=== PATIENT | female | born 1985 | race Caucasian/White ===

== ENCOUNTER 2025-02-10 14:34 | Emergency (ER) | payer SELFPAY ==
--- NOTE | ~2025-02-10 | US_ITS ---
EXAMINATION: US OB <=14 wk fetus w TV, 02/10/2025 16:38 V [employer]T M[employer] ASSEMBLER AND CURER HISTORY: 6-7 weeks, bleeding Comparison: None Technique: Orozco-scale and color Doppler images were obtained. Findings: The uterus is anteverted measuring 8.9 x 6.1 x 5.5 cm. Endometrium is thickened demonstrating a heterogeneous appearance with some areas of increased flow, the endometrium maximally measures 3.1 cm. Retained products of conception are not excluded Within the uterine cervix there is a probable gestational sac identified with questionable pole and yolk sac, no cardiac motion identified although evaluation is limited. Right ovary 2.5 x 1.5 x 2.2 cm, no adnexal mass, normal flow. Left ovary 3.2 x 1.5 x 3.2 cm, no adnexal mass, normal flow. IMPRESSION: Abnormally thickened endometrium with abnormal flow, possible retained products of conception. There is a probable gestational sac located within the uterine cervix. Findings probably represent in progress.. Serial beta-hCG and follow-up is recommended. Reviewed, dictated and finalized at location P. V BELT MOLD ASSEMBLER AND CURER IMPRESSION: Abnormally thickened endometrium with abnormal flow, possible retai rikki products of conception. There is a probable gestational sac located within the uterine cervix. Findings probably represent in progress.. Serial b eta-hCG and follow-up is recommended.
[2025-02-10 14:39] VITALS: BP 130/77; PULSE 107; RESP 18; TEMP 36.8; O2SAT 100
[2025-02-10 14:53] VITALS: BP 138/58; PULSE 99; RESP 17; O2SAT 100
--- OUTSIDE RECORDS SUMMARY | 2025-02-10 15:44 | XMS_ITS | Clinical Summary ---
Author Organization [facility] Address [address] [place] [address] Care Team Providers Care Electrician Elevator Maintenance Name Role Phone Unavailable Primary Care Provider Unavailabl e Source Comments [facility],non-owned Affiliates and Associated Physician Practices is amultiple site organization consisting of ambulatory clinics and hospital sitesin [place], [place], [place] and [place]. This disclosure is being madepursuant to the Care Everywhere program and may not contain all information available regarding this patient. Last updated 17.[facility] Allergies No known active allergies Immunizations Immunization Administration Dates Next Due FLU VACCINE QUAD IIV4 PF ID 12/21/2015 INFLUENZA VACCINE, QUADR. (F LUZONE; FLULAVAL; FLUARIX; AFLURIA QUADRIVALENT; 6MO+), 0.5 ML (IIV4) 12/23/2016 Social History Tobacco Use Types Packs/Day Years Used Date Smoking Tobacco: Never Assessed Comments Unknown Sex and Gender Information Value Date Recorded Sex Assigned at Not on file Legal Sex Female 4:34 PM CDT Gender Identity Not on file Sexual Orientation Not on file Plan of Treatment Health Maintenance Due Date Last Done Comments HIV SCREENING 12/12/2002 HEPATITIS C SCREENING 12/08/2005 DTAP/TDAP/TD VACCINES (1 - Tdap) 12/12/2006 HEPATITIS B VACCINE (1 of 3 - 19+ 3-dose series) 12/12/2006 HPV VACCINE (1 - 3-dose SCDM series) 12/12/2014 DEPRESSION SCREENING 03/09/2024 COVID-19 VACCINE (1 - 2024-2 6 season) 2024 INFLUENZA VACCINE (#1) 2024 7, 12/21/2015 ZOSTER VACCINE (1 of 2) 12/12/2037 HIB VACCINE Aged Out No longer eligi ble based on patient's age to complete this topic MENINGOCOCCAL (Group B) VACCINE SHARED DECISION-MAKING Aged Out No longer eligible based on patient's age to complete this topic MENINGOCOCCAL GROUPS A/C/Y/W VACCINE Aged Out No longer eligible b ased on patient's age to complete this topic PNEUMOCOCCAL VACCINE Aged Out No long er eligible based on patient's age to complete this topic Insurance
[2025-02-10 15:50] LABS: Hematocrit 39.0 % (37.0-47.0); Hemoglobin 12.8 g/dL (12.0-15.0); Immature Granulocyte Percent A 0.4 % (0-0.5); Lymphocytes Absolute Auto 2.92 K/mm3 (0.9-3.2); Mean Corpuscular HGB Conc 32.8 g/dl (32-36); Mean Corpuscular Hemoglobin 30.1 pg (26-34); Mean Corpuscular Volume 91.8 fl (80-100); Nucleated Red Blood Cells Absolute Auto 0.000 K/mm3 (0.0-0.012); Nucleated Red Blood Cells Perc 0.0 % (0.0-0.2); Platelet Count Result 334 k/mm3 (150-375); Red Blood Count 4.25 M/mm3 (4.2-5.4); White Blood Count 12.9 K/mm3 (4.5-10.0)
[2025-02-10 16:07] LABS: INR 1.0; Partial Thromboplastin Time 26.3 Seconds (22.3-36.8); Prothrombin Time 13.5 Seconds (11.1-14.7)
[2025-02-10 16:17] LABS: Alanine Aminotransferase 18 U/L (6-35); Albumin Level 4.7 g/dL (3.5-5.1); Alkaline Phosphatase 86 U/L (38-126); Anion Gap 6 mmol/L (4-12); Aspartate Amino Transferase 24 U/L (14-36); Bilirubin,Total 0.5 mg/dL (0.2-1.3); Blood Urea Nitrogen 9 mg/dL (7-17); Calcium 9.1 mg/dL (8.4-10.2); Carbon Dioxide 25 mmol/L (22-30); Chloride 104 mmol/L (98-107); Estimated CRCL calculation 107 ml/min; Estimated Glomerular Filt Rate > 60; Glucose 99 mg/dL (65-110); Potassium 3.4 mmol/L (3.4-5.0); Sodium 135 mmol/L (137-145); Total Protein 7.7 g/dL (6.3-8.2)
--- NOTE | 2025-02-10 17:04 | ED_ITS ---
HPI - General Chief complaint: Vaginal Bleeding Stated complaint: vaginal bleeding Time Seen by Provider: 02/10/25 15:02 Source: patient Mode of arrival: ambulatory Limitations: no limitations History of Present Illness HPI Narrative: Patient is a 39-year-old female who presents the ED with report of vaginal bleeding. Patient is currently approximately 6-7 weeks gestation based on most recent intercourse. States over the past couple of days, she has been having some light brown vaginal spotting. States today, the bleeding became heavier and bright red in color. Began bleeding briskly and filling pads every 30 minutes which prompted her presentation. Has been passing some clots. Sees a men's furnishings salesperson in [place]. . Reports mild lower abdominal cramping. Denies significant pain. Denies dizziness, lightheadedness. Related Data Allergies Allergy/AdvReac Type Severity Reaction Status Date / Time No Known Allergies Allergy Unknown Verified 02/10/25 14:54 Review of Systems Review of Systems: All systems reviewed & are unremarkable except as noted in HPI. All systems reviewed & are unremarkable except as noted in HPI and below PMFSH Family History Family History Grandparent Carcinoma of colon Diabetes mellitus Social History Social History Second hand tobacco smoke exposure: Yes Smoking end date: 03/09/12 Alcohol intake: never Exam Narrative: GENERAL: Well appearing, well-nourished, non-toxic, in no acute distress. HEAD: Normocephalic, atraumatic. RESPIRATORY: Airway patent, respirations nonlabored. Clear to auscultation bilaterally, no rales, rhonchi, wheezing. CARDIOVASCULAR: Regular rate and rhythm without murmurs, rubs, or gallops. PELVIC: Normal external genitalia. Mild amount of bright red bleeding in vaginal vault with several clots seen. Cervical os obscured by clot. No signs of hemorrhage or pooling of fluid MUSCULOSKELETAL: Moves all extremities. No gross deformities. SKIN: Warm, dry, normal color. NEURO: A&O X3. Speech clear. Cranial nerves II-XII grossly intact. Steady gait. No ataxic movements. PSYCHIATRIC: Appropriate mood and affect. Normal interaction. Discharge Plan Discharge Patient Language: Lao Follow-up/Referrals: PHYSICIAN,CERTIFIED VEHICLE FIRE INVESTIGATOR [Primary Care Provider, Internal Medicine] Course Vital Signs Vital signs: Vital Signs Temperature 98.2 F 02/10/25 14:39 Pulse Rate 107 H 02/10/25 14:39 Respiratory Rate 18 02/10/25 14:39 Blood Pressure 130/77 02/10/25 14:39 Pulse Oximetry 100 02/10/25 14:39 Temperature 98.2 F 02/10/25 14:39 Pulse Rate 99 02/10/25 14:53 Respiratory Rate 17 02/10/25 14:53 Blood Pressure 138/58 L 02/10/25 14:53 Pulse Oximetry 100 02/10/25 14:53
--- NOTE | 2025-02-10 17:11 | ED_ITS ---
HPI - General Adult General Chief complaint: Vaginal Bleeding Stated complaint: vaginal bleeding Time Seen by Provider: 02/10/25 15:02 Source: patient Mode of arrival: ambulatory Limitations: no limitations History of Present Illness HPI narrative: Patient is a 39-year-old female who presents the ED with report of vaginal bleeding. Patient is currently approximately 6-7 weeks gestation based on most recent intercourse. States over the past couple of days, she has been having some light brown vaginal spotting. States today, the bleeding became heavier and bright red in color. Began bleeding briskly and filling pads every 30 minutes which prompted her presentation. Has been passing some clots. Sees a licensed midwife in [place]. . Reports mild lower abdominal cramping. Denies significant pain. Denies dizziness, lightheadedness. Related Data Allergies Allergy/AdvReac Type Severity Reaction Status Date / Time No Known Allergies Allergy Unknown Verified 02/10/25 14:54 Review of Systems 2 Review of Systems: All systems reviewed & are unremarkable except as noted in HPI. All systems reviewed & are unremarkable except as noted in HPI and below PMFSH Family History Family History Grandparent Carcinoma of colon Diabetes mellitus Social History Social History Second hand tobacco smoke exposure: Yes Smoking end date: 03/09/12 Alcohol intake: never Exam 2 Narrative: GENERAL: Well appearing, well-nourished, non-toxic, in no acute distress. HEAD: Normocephalic, atraumatic. RESPIRATORY: Airway patent, respirations nonlabored. Clear to auscultation bilaterally, no rales, rhonchi, wheezing. CARDIOVASCULAR: Regular rate and rhythm without murmurs, rubs, or gallops. ABDOMINAL: Soft, nontender, nondistended. Normoactive BS. PELVIC: Normal external genitalia, mild to moderate amount of dark red vaginal blood in vault with several clots present. Cervical os obscured by clot. MUSCULOSKELETAL: Moves all extremities. No gross deformities. SKIN: Warm, dry, normal color. NEURO: A&O X3. Speech clear. Cranial nerves II-XII grossly intact. Steady gait. No ataxic movements. PSYCHIATRIC: Appropriate mood and affect. Normal interaction. Course Vital Signs Vital signs: Vital Signs Temperature 98.2 F 02/10/25 14:39 Pulse Rate 107 H 02/10/25 14:39 Respiratory Rate 18 02/10/25 14:39 Blood Pressure 130/77 02/10/25 14:39 Pulse Oximetry 100 02/10/25 14:39 Temperature 98.2 F 02/10/25 14:39 Pulse Rate 99 02/10/25 14:53 Respiratory Rate 17 02/10/25 14:53 Blood Pressure 138/58 L 02/10/25 14:53 Pulse Oximetry 100 02/10/25 14:53 [facility] Narrative Medical decision making narrative: Patient presented to ED approximately 6-7 weeks gestation reporting vaginal bleeding. Mildly tachycardic upon arrival. In no acute distress. Initial pelvic exam did reveal several large clots in the vaginal vault which I was able to remove with ring forceps. Bleeding improved after removal clots. No evidence of hemorrhage or pooling of fluid. Difficult to fully visualize cervix, but did have clots coming from partially open cervical os. Suspicious for spontaneous miscarriage. Beta hCG is 16,504 H&H is stable Blood type is O positive, no indication for RhoGAM. Ob ultrasound obtained, unfortunately consistent with ongoing spontaneous miscarriage IMPRESSION: Abnormally thickened endometrium with abnormal flow, possible retained products of conception. There is a probable gestational sac located within the uterine cervix. Findings probably represent in progress.. Serial beta-hCG and follow-up is recommended. Discussed lab and imaging findings with patient. She is feeling significantly improved after clot removal during pelvic exam. Bleeding is very much stable at this time, she denies any ongoing heavy bleeding. Remains hemodynamically stable. Vital signs stable. Feel comfortable w/ discharge home at this time. Advised will need close follow-up with OBGYN for further evaluation, repeat laboratory testing of hormone, as well as repeat ultrasound in the future. Will refer to on-call OBGYN here. Given strict return precautions/bleeding precautions. Patient in agreement with plan. Discharged in stable condition. Differential Diagnosis Differential Diagnosis: Spontaneous miscarriage, bleeding in 1st trimester, ectopic , subchorionic hematoma Medical Records I have reviewed the following patient records and this information was taken into consideration when formulating the assessment and plan.: previous labs, previous ER visits, previous hospitalizations and previous clinic visits Lab Data [facility] Lab Attestation statement: I personally reviewed the patient's lab results. 02/10/25 15:33 02/10/25 15:33 Labs: Lab Results 02/10/25 Range/Units 15:33 WBC 12.9 H (4.5-10.0) K/mm3 RBC 4.25 (4.2-5.4) M/mm3 Hgb 12.8 (12.0-15.0) g/dL Hct 39.0 (37.0-47.0) % MCV 91.8 (80-100) fl MCH 30.1 (26-34) pg MCHC 32.8 (32-36) g/dl RDW 14.3 (11.5-14.5) % Plt Count 334 (150-375) k/mm3 MPV 9.8 (7.4-10.4) fl Immature Gran % (Auto) 0.4 (0-0.5) % Neut % (Auto) 68.1 (45.5-73.1) % Lymph % (Auto) 22.6 (18.3-44.2) % [place] % (Auto) 5.5 (2.6-8.5) % Eos % (Auto) 2.9 (0-4.4) % Baso % (Auto) 0.5 (0.2-1.2) % Lymph # (Auto) 2.92 (0.9-3.2) K/mm3 [place] # (Auto) 0.7 H (0.1-0.6) K/mm3 Eos # (Auto) 0.4 H (0-0.3) K/mm3 Baso # (Auto) 0.1 (0.0-0.1) K/mm3 Abs Immat Gran (auto) 0.05 H (0.00-0.031) K/mm3 Absolute Neuts (auto) 8.8 H (1.3-6.7) K/mm3 Absolute Nucleated RBC 0.000 (0.0-0.012) K/mm3 Nucleated RBC % 0.0 (0.0-0.2) % PT 13.5 (11.1-14.7) Seconds INR 1.0 APTT 26.3 (22.3-36.8) Seconds Sodium 135 L (137-145) mmol/L Potassium 3.4 (3.4-5.0) mmol/L Chloride 104 (98-107) mmol/L Carbon Dioxide 25 (22-30) mmol/L Anion Gap 6 (4-12) mmol/L BUN 9 (7-17) mg/dL Creatinine 0.57 L (0.7-1.0) mg/dL Estim Creat Clear Calc 107 ml/min Estimated GFR > 60 (59 - ) Glucose 99 (65-110) mg/dL Calcium 9.1 (8.4-10.2) mg/dL Total Bilirubin 0.5 (0.2-1.3) mg/dL AST 24 (14-36) U/L ALT 18 (6-35) U/L Alkaline Phosphatase 86 (38-126) U/L Total Protein 7.7 (6.3-8.2) g/dL Albumin 4.7 (3.5-5.1) g/dL Beta HCG, Quant 85923.00 mIU/ML Blood Type O Positive Antibody Screen Negative Screen Not Reportable Baby's Blood Type Not Reportable Baby's YUAN Not Reportable Doses of RhIg Required 0 Imaging Data Attestation: I personally reviewed and interpreted this imaging study as follows: Radiologist's impression: ITS Impressions Obstetrics Ultrasound 02/10/25 17:27 IMPRESSION: Abnormally thickened endometrium with abnormal flow, possible retained products of conception. There is a probable gestational sac located within the uterine cervix. Findings probably represent in progress.. Serial beta-hCG and follow-up is recommended. Discharge Plan Discharge Clinical Impression: Spontaneous Patient Disposition: Home Condition: Stable Instructions: Antibiotic Form, Miscarriage (ED) Additional Instructions: Follow-up closely with OBGYN for further evaluation, repeat laboratory testing and repeat ultrasound. You will need to call the office on Thursday to make an appointment. Monitor bleeding closely. Return to the ED if you experience worsening or severe bleeding (soaking through > 1 pad per hour for > 3 hours), severe pain, unable to keep down food or drink, fevers, or any other symptoms of concern. Patient Language: Amharic Follow-up/Referrals: Ariel Perales MD [Physician, INSPECTOR FINAL ASSEMBLY CONVEYOR LINE] Referral Note: OBGYN PHYSICIAN,NATIONAL VAN TRUCK DRIVER [Primary Care Provider, Internal Medicine] Time of Disposition: 18:10
== END 2025-02-10 18:19 | disposition home or self-care (01) ==
PROVIDERS: Emergency Provider Physician Assistant
DX: O03.9 Complete or unspecified spontaneous abortion without complication (principal); Z87.891 Personal history of nicotine dependence
CPT/HCPCS: 36415; 76801; 76817; 80053; 84702; 85025; 85461; 85610; 85730; 86850; 86900; 86901; 99284